=== PATIENT | female | born 1990 | race American Indian/Alaskan Native ===

== ENCOUNTER 2016-08-10 09:42 | Emergency (ER) | payer OTHER ==
[2016-08-10 09:53] VITALS: BMI 21.2
[2016-08-10 09:56] VITALS: O2SAT 99
--- NOTE | 2016-08-10 10:48 | ED PDOC ---
Arrival/HPI <Inocente Dickson Jr. - Last Filed: 08/10/16 11:39> - General Historian: Patient - History of Present Illness Time/Duration: Prior to Arrival Quality: Aching, Cramping <Willy Ríos - Last Filed: 08/12/16 13:11> - General Chief Complaint: Abdominal Pain Time Seen by Provider: 08/10/16 10:31 - History of Present Illness Narrative History of Present Illness (Text): 08/10/16 10:51 26 y/o female with no significant PMH presenting with complaints of lower abdominal pain. Patient localizes the pain to the infra-umbilical area right of midline. She states she woke up with the pain this morning. She denies possibility of . Further dies diarrhea, nausea, vomiting, fever or chills. Pain is worse with laying flat. Appetite is intact. (Willy Ríos) Past Medical History - Provider Review Nursing Documentation Reviewed: Yes - Psychiatric Hx Substance Use: No <Willy Ríos - Last Filed: 08/12/16 13:11> Family/Social History - Physician Review Nursing Documentation Reviewed: Yes Family/Social History: Diabetes Smoking Status: Never Smoked Hx Alcohol Use: No Hx Substance Use: No <Willy Ríos - Last Filed: 08/12/16 13:11> Allergies/Home Meds <Inocente Dickson Jr. - Last Filed: 08/10/16 11:39> <Willy Ríos - Last Filed: 08/12/16 13:11> Allergies/Adverse Reactions: Allergies No Known Allergies Allergy (Verified 08/10/16 09:53) Review of Systems - Physician Review All systems were reviewed & negative as marked: Yes - Review of Systems Constitutional: absent: Fatigue, Weight Change, Fevers Eyes: Normal. absent: Photophobia ENT: Normal Respiratory: absent: SOB, Cough Gastrointestinal: Abdominal Pain. absent: Stool Changes, Constipation, Diarrhea , Nausea, Vomiting, Appetite Changes, Hematochezia Genitourinary Female: absent: Dysuria, Frequency, Hematuria Musculoskeletal: absent: Back Pain, Neck Pain Skin: absent: Rash, Pruritis, Skin Lesions Neurological: absent: Headache, Dizziness, Focal Weakness Psychiatric: absent: Anxiety, Depression <Willy Ríos - Last Filed: 08/12/16 13:11> Physical Exam Vital Signs Reviewed: Yes Temperature: Afebrile Blood Pressure: Normal Pulse: Regular Respiratory Rate: Normal Appearance: Positive for: Uncomfortable Pain Distress: Moderate Mental Status: Positive for: Alert and Oriented X 3 - Systems Exam Head: Present: Atraumatic, Normocephalic Pupils: Present: PERRL Extroacular Muscles: Present: EOMI Conjunctiva: Present: Normal Mouth: Present: Moist Mucous Membranes Respiratory/Chest: Present: Clear to Auscultation, Good Air Exchange. No: Respiratory Distress Cardiovascular: Present: Regular Rate and Rhythm, Normal S1, S2 Abdomen: Present: Tenderness, Normal Bowel Sounds, Rebound. No: Distention Upper Extremity: Present: Normal Inspection. No: Cyanosis, Edema Lower Extremity: Present: Normal Inspection, NORMAL PULSES. No: Edema, CALF TENDERNESS Neurological: Present: GCS=15, CN II-XII Intact, Speech Normal <Willy Ríos - Last Filed: 08/12/16 13:11> Vital Signs Temp Pulse Resp BP Pulse Ox 08/10/16 16:56 84 18 113/64 99 08/10/16 16:38 98.3 F 64 18 121/65 99 08/10/16 15:00 67 18 123/61 99 08/10/16 13:00 71 18 125/64 99 08/10/16 10:59 79 18 128/68 99 08/10/16 09:53 98.5 F 84 15 130/70 99 Medical Decision Making - Lab Interpretations I have reviewed the lab results: Yes <Inocente Dickson Jr. - Last Filed: 08/10/16 11:39> <Willy Ríos - Last Filed: 08/12/16 13:11> ED Course and Treatment: Patient seen and examined with resident. Came up with treatment and disposition plan with resident. The patient is a 26 year old female who comes to the emergency department for evaluation of lower abdominal pain. Additional HPI details as noted by resident. On physical examination. On examination the patient has tenderness to the abdomen with some rebound. Abdomen/Pelvis CT ordered to rule out appendicitis vs. ruptured ovarian cyst. Dilaudid given for pain. IV Fluids given. (Inocente Dickson Jr.) 08/10/16 10:57 26 y/o female presenting with sudden onset lower abdominal pain. Abdomen is tender with some rebound. There is certainly the possibility of appendicitis vs ruptured ovrian cyst vs ectopic . - POC test - CBC - CMP - Coag - type and screen - CT abd/pelvis w/ PO, IV contrast if not - IVF - pain management (Willy Ríos) - Lab Interpretations Lab Results: 08/10/16 11:25 08/10/16 11:25 Lab Results 08/10/16 11:30: Blood Type O POSITIVE, Antibody Screen Negative, BBK History Checked No verified bt 08/10/16 11:25: WBC 6.3, RBC 4.04, Hgb 11.7 L, Hct 34.1 L, MCV 84.4, MCH 29.0, MCHC 34.3, RDW 12.0, Plt Count 229, MPV 9.7, Gran % 67.0, Lymph % (Auto) 26.2, [place] % (Auto) 5.7, Eos % (Auto) 0.9 L, Baso % (Auto) 0.2, Gran # 4.24, Lymph # 1.7, [place] # 0.4, Eos # 0.1, Baso # 0.01, PT 11.1, INR 1.03, APTT 27.5, Sodium 138, Potassium 4.5, Chloride 102, Carbon Dioxide 26, Anion Gap 15, BUN 9, Creatinine 0.7, Est GFR ( Amer) > 60, Est GFR (Non-Af Amer) > 60, Random Glucose 101, Calcium 9.2, Total Bilirubin 0.7, AST 28, ALT 22, Alkaline Phosphatase 83, Total Protein 8.1, Albumin 4.4, Globulin 3.7, Albumin/Globulin Ratio 1.2 08/10/16 11:00: Urine Color Yellow, Urine Appearance Clear, Urine pH 7.0, Ur Specific [place] 1.015, Urine Protein Negative, Urine Glucose (UA) Negative, Urine Ketones Negative, Urine Blood Trace-intact H, Urine Nitrate Negative, Urine Bilirubin Negative, Urine Urobilinogen 0.2, Ur Leukocyte Esterase Trace H , Urine RBC 0 - 2, Urine WBC 0 - 2, Ur Epithelial Cells 0 - 2, Urine Bacteria Trace - RAD Interpretation Radiology Orders: 08/10/16 11:18 ABDOMEN & PELVIS [ABD PELVIS PO & IV CONTRAST] [CT] Stat 08/10/16 14:23 TRANSVAGINAL [US] Stat - Medication Orders Current Medication Orders: Discontinued Medications Hydromorphone HCl (Dilaudid) 0.5 mg IVP STAT STA Stop: 08/10/16 11:00 Last Admin: 08/10/16 11:21 Dose: 0.5 MG IVP Administration Document 08/10/16 11:21 AICHA (Rec: 08/10/16 11:21 AICHA [id number]) Charges for Administration # of IVP Administrations 1 Sodium Chloride (Sodium Chloride 0.9%) 1,000 mls @ 999 mls/hr IV .Q1H1M STA Stop: 08/10/16 11:59 Last Admin: 08/10/16 11:21 Dose: 999 MLS/HR eMAR Start Stop Document 08/10/16 11:21 AICHA (Rec: 08/10/16 11:22 AICHA [id number]) Intravenous Solution Start Date 08/10/16 Start Time 11:21 End Date 08/10/16 End time 12:21 Total Infusion Time 60 Iohexol (Omnipaque 240 (50 Ml)) Confirm Administered Dose 50 ml .ROUTE .STK-MED ONE Stop: 08/10/16 11:27 Iohexol (Omnipaque 350 100 Ml) Confirm Administered Dose 350 mg .ROUTE .STK-MED ONE Stop: 08/10/16 13:12 - Scribe Statement The provider has reviewed the documentation as recorded by the Scribe <Inocente Dickson Jr. - Last Filed: 08/10/16 11:39> <Willy Ríos - Last Filed: 08/12/16 13:11> - Scribe Statement William De La Rosa Provider Scribe Attestation: All medical record entries made by the Scribe were at my direction and personally dictated by me. I have reviewed the chart and agree that the record accurately reflects my personal performance of the history, physical exam, medical decision making, and the department course for this patient. I have also personally directed, reviewed, and agree with the discharge instructions and disposition. (Inocente Dickson Jr.) Disposition/Present on Arrival <Inocente Dickson Jr. - Last Filed: 08/10/16 11:39> - Present on Arrival Any Indicators Present on Arrival: No History of DVT/PE: No History of Uncontrolled Diabetes: No Urinary Catheter: No History of Decub. Ulcer: No History Surgical Site Infection Following: None - Disposition Have Diagnosis and Disposition been Completed?: Yes Disposition Time: 14:00 <Willy Ríos - Last Filed: 08/12/16 13:11> - Disposition Diagnosis: Dermoid cyst of ovary Disposition: HOME/ ROUTINE Condition: GOOD Discharge Instructions (ExitCare): Ovarian Cyst (ED) Additional Instructions: A referral for a cycle repairer is attached to this document. Please see this physician within the next week. You are prescribed Motrin for pain. Please take 400mg every 6 hours as needed for pain. If symptoms worsen please return to the ED. Prescriptions: Ibuprofen [Motrin] 400 mg PO Q6H PRN #30 tab PRN Reason: abdominal pain Referrals: Elsie Mckay MD [Primary Care Provider] - Follow up with primary Vernell Peña MD [Staff Provider] - Follow up with primary
[2016-08-10 10:59] VITALS: RESP 18
[2016-08-10] MEDS ORDERED: Sodium Chloride 0.9% 1,000 ML IV STA (10:59)
[2016-08-10] MEDS ORDERED: HYDROmorphone 0.5 mg/0.5 ml ISec IVP STA (10:59)
[2016-08-10 11:25] LABS: URINE BILIRUBIN NEGATIVE (NEGATIVE); URINE BLOOD TRACE-INTACT (NEGATIVE); URINE GLUCOSE (UA) NEGATIVE (NEGATIVE); URINE KETONE NEGATIVE (NEGATIVE); URINE LEUKOCYTE ESTERASE TRACE Leu/uL (NEGATIVE); URINE PROTEIN NEGATIVE mg/dL (<30 mg/dL); URINE UROBILINOGEN 0.2 E.U./dL (<1 E.U./dL)
[2016-08-10] MEDS ORDERED: Iohexol 240 (50 ml) ONE (11:26)
[2016-08-10 11:36] LABS: ADD MANUAL DIFF? NO
[2016-08-10 11:43] LABS: URINE APPEARANCE CLEAR (CLEAR); URINE COLOR YELLOW (YELLOW)
[2016-08-10 11:46] LABS: BASO # 0.01 K/mm3 (0.0-2.0); BASO % 0.2 % (0.0-3.0); EOS # 0.1 (0.0-0.7); EOS % 0.9 % (1.5-5.0); GRAN # 4.24 (1.4-6.5); HEMATOCRIT 34.1 % (36.0-48.0); LYMPH # 1.7 (1.2-3.4); LYMPH % 26.2 % (22.0-35.0); MEAN CELL VOLUME 84.4 fL (80.0-105.0); MEAN CORPUSCULAR HGB CONC 34.3 g/dl (31.0-37.0); MEAN PLATELET VOLUME 9.7 fl (7.0-11.0); MONO # 0.4 (0.1-0.6); MONO % 5.7 % (1.0-6.0); PLATELET COUNT 229 10^3/uL (120.0-450.0); WHITE BLOOD COUNT 6.3 10^3/ul (4.5-11.0)
[2016-08-10 11:46] LABS: URINE BACTERIA TRACE (NEG); URINE EPITHELIAL CELLS 0 - 2 /hpf (0-5); URINE RBC 0 - 2 /hpf (0-2); URINE WBC 0 - 2 /hpf (0-6)
[2016-08-10 11:56] LABS: INR 1.03 (0.93-1.08); PARTIAL THROMBOPLASTIN TIME 27.5 Seconds (23.7-30.8)
[2016-08-10 12:02] LABS: ALB/GLOB RATIO 1.2 (1.1-1.8); ALKALINE PHOSPHATASE 83 U/L (38-133); ALT/SGPT 22 U/L (7-56); AST/SGOT 28 U/L (15-39); BILIRUBIN,TOTAL 0.7 mg/dL (0.2-1.3); BLOOD UREA NITROGEN 9 mg/dL (7-21); CALCIUM 9.2 mg/dL (8.4-10.5); CARBON DIOXIDE 26 mmol/L (21-33); CHLORIDE 102 mmol/L (98-107); GFR AFRICAN-AMERICAN > 60; GLUCOSE,RANDOM 101 mg/dL (70-110); POTASSIUM 4.5 mmol/L (3.6-5.0); SODIUM 138 mmol/L (132-148); TOTAL PROTEIN 8.1 g/dL (5.8-8.3)
[2016-08-10] MEDS ORDERED: Iohexol 350 MG/100 ML VIAL ONE (13:11)
--- NOTE | 2016-08-10 13:56 | CT ---
PROCEDURE: CT Abdomen and Pelvis with contrast HISTORY: abdominal pain r/o appendicitis COMPARISON: None. TECHNIQUE: Contrast dose: 100 cc of Omni 350 Radiation dose: Total exam DLP = 256 mGy-cm. FINDINGS: LOWER THORAX: Unremarkable. LIVER: Unremarkable. No gross lesion or ductal dilatation. GALLBLADDER AND BILE DUCTS: Unremarkable. PANCREAS: Unremarkable. No gross lesion or ductal dilatation. SPLEEN: Unremarkable. ADRENALS: Unremarkable. No mass. KIDNEYS AND URETERS: Unremarkable. No hydronephrosis. No solid mass. VASCULATURE: Unremarkable. No aortic aneurysm. BOWEL: Unremarkable. No obstruction. No gross mural thickening. APPENDIX: Normal appendix. PERITONEUM: Unremarkable. No free fluid. No free air. LYMPH NODES: Unremarkable. No enlarged lymph nodes. BLADDER: Unremarkable. REPRODUCTIVE: There is a fat density mass in the left adnexal region consistent with a dermoid. This measures 4.4 cm in diameter and 5.1 cm in height. There is a small amount of fluid in the cul-de-sac. The uterus is retroflexed BONES: No acute fracture. OTHER FINDINGS: None. IMPRESSION: Left adnexal dermoid. No acute intra-abdominal findings. No evidence of appendicitis
--- NOTE | 2016-08-10 15:20 | US ---
HISTORY: dermoid cyst found on CT abd COMPARISON: None available. TECHNIQUE: Transvaginal scanning was per FINDINGS: UTERUS: Measures uterus retroverted and measures 8.1 x 4.1 x 5.0 cm. Normal size No fibroid or other mass lesion seen. ENDOMETRIUM: Measures 9 mm in diameter. Unremarkable. CERVIX: No cervical abnormality identified. RIGHT OVARY: Measures 4.4 x 4.5 x 2.5 cm. No solid mass. Normal flow. LEFT OVARY: Measures 4.3 x 2.6 x 3.0 cm. A complex partly cystic left adnexal mass with a CT appearance of fat, intermediate soft tissue and faint calcification suggesting a left ovarian dermoid - this mass measures 5.3 x 4.6 x 5.6 cm on this ultrasound FREE FLUID: No significant free fluid noted. OTHER FINDINGS: None. IMPRESSION: Left adnexal findings consistent with a left ovarian dermoid
[2016-08-10 16:39] VITALS: TEMP 98.3
[2016-08-10 16:57] VITALS: BP 113/64; PULSE 84
== END 2016-08-10 16:57 | disposition home or self-care (01) ==
LOC: ED 09:42
DX: D27.1 Benign neoplasm of left ovary (principal)
CPT/HCPCS: 74177; 76830; 80053; 81001; 85025; 85610; 85730; 86850; 86900; 96361; 96374; 99284; J1170; J7040; Q9966; Q9967

== ENCOUNTER 2016-12-26 22:21 | Observation (INO) | payer OTHER ==
--- NOTE | 2016-12-27 00:05 | ED PDOC ---
Arrival/HPI - General Chief Complaint: Abdominal Pain Time Seen by Provider: 12/26/16 22:52 Historian: Patient - History of Present Illness Narrative History of Present Illness (Text): 12/27/16 00:02 Nate Alvarenga is a 26 year old, 3 month female ( P:1 A:2) presents to the emergency department complaining of abdominal cramps. Denies any vaginal bleeding or discharge. Patient states she has care and had her first US a week ago which was normal. Denies any fever, chills, headache, dizziness, nausea, vomiting, or any other complaints at this time. Time/Duration: Other (yesterday ) Symptom Onset: Gradual Severity Level: Mild Activities at Onset: Light Past Medical History - Provider Review Nursing Documentation Reviewed: Yes - Psychiatric Hx Substance Use: No Family/Social History - Physician Review Nursing Documentation Reviewed: Yes Family/Social History: No Known Family HX Smoking Status: Never Smoked Hx Alcohol Use: No Hx Substance Use: No Allergies/Home Meds Allergies/Adverse Reactions: Allergies No Known Allergies Allergy (Verified 12/26/16 23:50) Home Medications: Home Meds Medication Instructions Recorded Confirmed Pre Natalvitamins 1 tab PO DAILY 12/26/16 12/26/16 Review of Systems - Physician Review All systems were reviewed & negative as marked: Yes - Review of Systems Constitutional: Normal. absent: Fatigue, Fevers Respiratory: Normal. absent: SOB, Cough, Sputum Cardiovascular: Normal. absent: Chest Pain, Palpitations Gastrointestinal: Abdominal Pain (Abdominal cramps ). absent: Diarrhea, Nausea , Vomiting Genitourinary Female: Normal. absent: Dysuria, Frequency, Vaginal Bleeding, Vaginal Discharge Neurological: Normal. absent: Headache, Dizziness Psychiatric: Normal Physical Exam Vital Signs Reviewed: Yes Vital Signs Temp Pulse Resp BP Pulse Ox 12/26/16 23:52 98.6 F 93 H 18 124/81 100 Temperature: Afebrile Blood Pressure: Normal Pulse: Regular Respiratory Rate: Normal Appearance: Positive for: Well-Appearing, Non-Toxic, Comfortable Pain Distress: None Mental Status: Positive for: Alert and Oriented X 3 - Systems Exam Head: Present: Atraumatic, Normocephalic Pupils: Present: PERRL Conjunctiva: Present: Normal Mouth: Present: Moist Mucous Membranes Respiratory/Chest: Present: Clear to Auscultation, Good Air Exchange. No: Respiratory Distress, Accessory Muscle Use Cardiovascular: Present: Regular Rate and Rhythm, Normal S1, S2. No: Murmurs Abdomen: Present: Tenderness (left lower abdomen), Normal Bowel Sounds. No: Distention, Peritoneal Signs, Rebound, Guarding Back: Present: CVA Tenderness (left) Upper Extremity: Present: Normal Inspection. No: Cyanosis, Edema Lower Extremity: Present: Normal Inspection. No: Edema Neurological: Present: GCS=15, CN II-XII Intact, Speech Normal, Motor Func Grossly Intact, Normal Sensory Function Skin: Present: Warm, Dry, Normal Color. No: Rashes Psychiatric: Present: Alert, Oriented x 3, Normal Insight, Normal Concentration Medical Decision Making ED Course and Treatment: 12/27/16 00:07 Impression: A 26 year old, 3 month female who presents to the emergency department complaining of abdominal cramps. Denies vaginal bleeding or discharge. Plan: -- Labs -- Beta-HCG -- Urinalysis -- Age US -- Reassess and disposition Progress Notes: 12/27/16 01:42 US reviewed: IMPRESSION: 1. Single live intrauterine gestation. 2. Probable complex LEFT ovarian cyst. Suggest followup to ensure resolution. 3. Simple LEFT ovarian cyst. 12/27/16 03:55 Case discussed with who is aware and agrees with the plan to observe patient at [facility] for pyelo. Accepts patient under hospitalist service. - Lab Interpretations Lab Results: 12/27/16 00:40 12/27/16 00:41 Lab Results 12/27/16 00:41: Blood Type O POSITIVE, Antibody Screen Negative, BBK History Checked Patient has bt 12/27/16 00:41: Beta HCG, Quant [id number] H 12/27/16 00:41: Sodium 136, Potassium 4.4, Chloride 100, Carbon Dioxide 24, Anion Gap 16, BUN 8, Creatinine 0.6, Est GFR ( Amer) > 60, Est GFR (Non- Af Amer) > 60, Random Glucose 99, Calcium 9.3, Total Bilirubin 0.4, AST 24, ALT 29, Alkaline Phosphatase 69, Total Protein 7.2, Albumin 4.0, Globulin 3.1, Albumin/Globulin Ratio 1.3, Lipase 39 12/27/16 00:40: WBC 14.7 H D, RBC 3.26 L, Hgb 9.3 L, Hct 27.2 L, MCV 83.4, MCH 28.5, MCHC 34.2, RDW 12.4, Plt Count 203, MPV 9.4 12/27/16 00:33: Urine Color Yellow, Urine Appearance Sl cloudy, Urine pH 6.0, Ur Specific [place] 1.020, Urine Protein 30 H, Urine Glucose (UA) Negative, Urine Ketones Negative, Urine Blood Moderate H, Urine Nitrate Negative, Urine Bilirubin Negative, Urine Urobilinogen 1.0 H, Ur Leukocyte Esterase Moderate H, Urine RBC 2 - 5, Urine WBC 20 - 25, Ur Epithelial Cells 3 - 4, Urine Bacteria Trace, Urine HCG, Qual Positive I have reviewed the lab results: Yes - RAD Interpretation Narrative RAD Interpretations (Text): EXAM: US After First Trimester, Transabdominal Dictated and Authenticated by: Tyree Barkley MD FINDINGS: Fetus: Single live intrauterine gestation. Heart rate: heart rate of 170 beats per minute. Presentation: Variable. Placenta: Anterior placenta. No placenta previa or abruption. Amniotic fluid: Normal. Anatomy: No gross anomaly is appreciated. BIOMETRICS Gestational age by US: Estimated gestational age of 13 weeks 4 days by measurements. EFW: Estimated weight of 78 g. BPD: 2.1 cm, correlating with 13 weeks 3 days. HC: 8.6 cm, correlating with 13 weeks 6 days. AC: 7.3 cm, correlating with 13 weeks 6 days. FL: 1.1 cm, correlating with 13 weeks 2 days. MATERNAL: Uterus: Unremarkable. No myometrial mass. Cervix: No cervical dilatation or effacement. Adnexa: RIGHT ovary: Not visualized. LEFT ovary: 5.2 x 4.4 x 4.2 hypoechoic lesion with internal echoes. LEFT ovary: 1.9 x 1.9 x 1.7 cm anechoic lesion. No adnexal masses. Free fluid: No significant free fluid. IMPRESSION: 1. Single live intrauterine gestation. 2. Probable complex LEFT ovarian cyst. Suggest followup to ensure resolution. 3. Simple LEFT ovarian cyst. 4. Incidental/non-acute findings are described above. Radiology Orders: 12/27/16 00:03 AGE [US] Stat Sonography Technician: Radiologist - Medication Orders Current Medication Orders: Discontinued Medications Ceftriaxone Sodium (Rocephin 1 Gram Ivpb) 1 gm in 100 mls @ 200 mls/hr IV ONCE STA PRN Reason: Protocol Stop: 12/27/16 03:18 Last Admin: 12/27/16 03:33 Dose: 200 mls/hr - Scribe Statement The provider has reviewed the documentation as recorded by the Kane Monreal Provider Attestation: All medical record entries made by the Marceibdavid were at my direction and personally dictated by me. I have reviewed the chart and agree that the record accurately reflects my personal performance of the history, physical exam, medical decision making, and the department course for this patient. I have also personally directed, reviewed, and agree with the discharge instructions and disposition. Disposition/Present on Arrival - Present on Arrival Any Indicators Present on Arrival: No History of DVT/PE: No History of Uncontrolled Diabetes: No Urinary Catheter: No History of Decub. Ulcer: No History Surgical Site Infection Following: None - Disposition Have Diagnosis and Disposition been Completed?: Yes Diagnosis: Pyelonephritis affecting Disposition: HOSPITALIZED Disposition Time: 03:54 Patient Problems: Current Active Problems Problem Status Onset Pyelonephritis affecting Acute Condition: STABLE Referrals: PCP,NO [Primary Care Provider] - Follow up with primary Forms: Utility Funding ([place])
[2016-12-27 00:53] LABS: URINE BILIRUBIN NEGATIVE (NEGATIVE); URINE BLOOD MODERATE (NEGATIVE); URINE GLUCOSE (UA) NEGATIVE (NEGATIVE); URINE LEUKOCYTE ESTERASE MODERATE Leu/uL (NEGATIVE); URINE NITRATE NEGATIVE (NEGATIVE); URINE PROTEIN 30 mg/dL (<30 mg/dL)
[2016-12-27 00:56] LABS: HCG,QUALITATIVE URINE POSITIVE (NEGATIVE)
[2016-12-27 00:56] LABS: HEMOGLOBIN 9.3 g/dL (12.0-16.0); MEAN CELL VOLUME 83.4 fl (80.0-105.0); MEAN CORPUSCULAR HEMOGLOBIN 28.5 pg (25.0-35.0); MEAN CORPUSCULAR HGB CONC 34.2 g/dl (31.0-37.0); MEAN PLATELET VOLUME 9.4 fl (7.0-11.0); RBC 3.26 10^6/uL (3.5-6.1); RED CELL DISTRIBUTION WIDTH 12.4 % (11.5-14.5); WHITE BLOOD COUNT 14.7 10^3/ul (4.5-11.0)
[2016-12-27 00:58] LABS: URINE APPEARANCE SL CLOUDY (CLEAR); URINE COLOR YELLOW (YELLOW)
[2016-12-27 01:06] LABS: ALB/GLOB RATIO 1.3 (1.1-1.8); ALT/SGPT 29 U/L (7-56); AST/SGOT 24 U/L (15-39); BLOOD UREA NITROGEN 8 mg/dL (7-21); CALCIUM 9.3 mg/dL (8.4-10.5); GFR AFRICAN-AMERICAN > 60; GFR NON-AFRICAN AMERICAN > 60; LIPASE 39 U/L (23-300)
[2016-12-27 01:13] LABS: URINE WBC 20 - 25 /hpf (0-6)
[2016-12-27 01:14] LABS: URINE BACTERIA TRACE (NEG)
--- NOTE | 2016-12-27 01:23 | US ---
EXAM: US After First Trimester, Transabdominal CLINICAL HISTORY: 26 years old, female; Pain; Other: Lt sided pain; Gestational age or lmp: 09/24/16; TECHNIQUE: Real-time transabdominal obstetrical ultrasound of the maternal pelvis and a second or third trimester with image documentation. COMPARISON: No relevant prior studies available. FINDINGS: Fetus: Single live intrauterine gestation. Heart rate: heart rate of 170 beats per minute. Presentation: Variable. Placenta: Anterior placenta. No placenta previa or abruption. Amniotic fluid: Normal. Anatomy: No gross anomaly is appreciated. BIOMETRICS Gestational age by US: Estimated gestational age of 13 weeks 4 days by measurements. EFW: Estimated weight of 78 g. BPD: 2.1 cm, correlating with 13 weeks 3 days. HC: 8.6 cm, correlating with 13 weeks 6 days. AC: 7.3 cm, correlating with 13 weeks 6 days. FL: 1.1 cm, correlating with 13 weeks 2 days. MATERNAL: Uterus: Unremarkable. No myometrial mass. Cervix: No cervical dilatation or effacement. Adnexa: RIGHT ovary: Not visualized. LEFT ovary: 5.2 x 4.4 x 4.2 hypoechoic lesion with internal echoes. LEFT ovary: 1.9 x 1.9 x 1.7 cm anechoic lesion. No adnexal masses. Free fluid: No significant free fluid. IMPRESSION: 1. Single live intrauterine gestation. 2. Probable complex LEFT ovarian cyst. Suggest followup to ensure resolution. 3. Simple LEFT ovarian cyst. 4. Incidental/non-acute findings are described above.
[2016-12-27] MEDS ORDERED: cefTRIAXone 1 gm 1 GM/100 ML BAG IV STA (02:49)
--- NOTE | 2016-12-27 05:38 | CP.PCM.HP ---
<Santiago Khanna - Last Filed: 12/27/16 06:04> History of Present Illness - History of Present Illness History of Present Illness: CC: Left lower quadrant pain HPI: Patient is a 26 year old female currently in first trimester ( A2) with PMH significant for history of bladder infection who presents with abdominal cramping and left sided abdominal pain for the past 12 hours. She reports her left lower abdominal pain is dull in nature without radiation. She reports the pain is constant and has not taken anything for pain control. She denies hematuria, fever, dysuria, or cloudy urine. She denies vaginal discharge and bleeding at time of interview. She currently receives care from [facility], there she reports a normal first trimester US. She denies fever , chills, chest pain, shortness of breath, nausea, vomiting or difficulty with urination. PMH: Bladder infections PSH: none FMH: Diabetes Allergies: NKDA Meds: vitamin Sochx: Denies tobacco, ETOH, ID/IVDA PMD: [facility] Present on Admission - Present on Admission Any Indicators Present on Admission: No History of DVT/PE: No History of Uncontrolled Diabetes: No Urinary Catheter: No Decubitus Ulcer Present: No Review of Systems - Constitutional Constitutional: As Per HPI - EENT Eyes: As Per HPI - Cardiovascular Cardiovascular: As Per HPI - Gastrointestinal Gastrointestinal: Abdominal Pain (Left sided), Cramping. absent: Bloating, Nausea, Vomiting - Genitourinary Genitourinary: Flank Pain (minimal left sided). absent: Change in Urinary Stream, Difficulty Urinating, Dysuria, Pyuria, Urinary Incontinence, Urinary Urgency - Reproductive: Female Reproductive:Female: As Per HPI - Menstruation Menstruation: As Per HPI - Musculoskeletal Musculoskeletal: absent: Back Pain, Muscle Weakness, Numbness - Integumentary Integumentary: As Per HPI - Neurological Neurological: absent: Dizziness, Numbness, Focal Weakness, Weakness - Psychiatric Psychiatric: absent: Anxiety, Depression - Endocrine Endocrine: absent: Excessive Sweating, Fatigue, Palpitations Past Patient History - Past Social History Smoking Status: Never Smoked - PSYCHIATRIC Hx Substance Use: No - SURGICAL HISTORY Hx Surgeries: No Meds Allergies/Adverse Reactions: Allergies Allergy/AdvReac Type Severity Reaction Status Date / Time No Known Allergies Allergy Verified 12/26/16 23:50 Physical Exam - Head Exam Head Exam: ATRAUMATIC, NORMAL INSPECTION, NORMOCEPHALIC - Eye Exam Eye Exam: EOMI, PERRL - ENT Exam ENT Exam: Mucous Membranes Moist, Normal Exam - Neck Exam Neck exam: Positive for: Normal Inspection - Respiratory Exam Respiratory Exam: Clear to Auscultation Bilateral, NORMAL BREATHING PATTERN - Cardiovascular Exam Cardiovascular Exam: REGULAR RHYTHM, +S1, +S2 - GI/Abdominal Exam GI & Abdominal Exam: Normal Bowel Sounds, Soft, Tenderness (left lower quadrant TTP). absent: Firm, Guarding, Rigid - Extremities Exam Extremities exam: Positive for: full ROM, normal inspection, pedal pulses present - Back Exam Back exam: FULL ROM, tenderness (left sided T12 to L3 ). absent: CVA tenderness (L), CVA tenderness (R) - Neurological Exam Neurological exam: Alert, CN II-XII Intact, Normal Gait, Oriented x3, Reflexes Normal - Psychiatric Exam Psychiatric exam: Normal Affect, Normal Mood - Skin Skin Exam: Dry, Intact, Normal Color, Warm Results - Vital Signs Recent Vital Signs: Last Vital Signs Temp 98.9 F 12/27/16 04:35 Pulse 99 H 12/27/16 04:35 Resp 18 12/27/16 05:06 BP 118/60 12/27/16 04:35 Pulse Ox 99 12/27/16 05:06 - Labs Result Diagrams: 12/27/16 00:40 12/27/16 00:41 Assessment & Plan - Assessment and Plan (Free Text) Assessment: Patient is a 26 year old female in her first trimester who presents to the ED with left lower abdominal pain and cramping. UA in the ED shows positive leukocyte esterase and CBC shows elevated WBC. She is being admitted for possible pyelonephritis in the setting of first TM . Plan: 1. LLQ Abdominal Pain - Likely secondary to UTI vs. Pylonephritis vs. ovarian cyst - UA showing positive leuk esteratse, protein - 1 gram Rocephin given in ED - U/S showing single live intrauterine gestation, complex left ovarian cyst - IVF NS @ 100mL/Hr 2. UTI - UA showing positive leuk esteratse, elevated protein - WBC elevated 14.7 - Afebrile - 1 gm rocephin given in ED, continue ceftriaxone - Follow up with repeat CBC in AM - Urine culture - ID Consulted appreciate recs 3. First TM intrauterine - Beta HCG, Quant [id number] - U/S showing single live intrauterine gestation - MV, Folic acid 4. GI/DVT ppx - Pepcid - SCDs - Date & Time Date: 12/27/16 Time: 06:13 <Nery Shabazz - Last Filed: 12/27/16 06:45> Results - Vital Signs Recent Vital Signs: Last Vital Signs Temp 98.9 F 12/27/16 04:35 Pulse 99 H 12/27/16 04:35 Resp 18 12/27/16 05:06 BP 118/60 12/27/16 04:35 Pulse Ox 99 12/27/16 05:06 - Labs Result Diagrams: 12/27/16 00:40 12/27/16 00:41 Attending/Attestation - Attestation I have personally seen and examined this patient.: Yes I have fully participated in the care of the patient.: Yes I have reviewed all pertinent clinical information: Yes Notes (Text): 12/27/16 06:44 Patient was seen when she was in the ER. Agree with history, physical examination, assessment and plan.
[2016-12-27] MEDS ORDERED: Sodium Chloride 0.9% 1,000 ML IV SCH (05:45)
[2016-12-27 06:51] VITALS: BMI 22.1
[2016-12-27 08:50] LABS: BASO # 0.01 K/mm3 (0.0-2.0); BASO % 0.1 % (0.0-3.0); EOS % 0.2 % (1.5-5.0); GRAN # 12.04 (1.4-6.5); GRAN % 87.4 % (50.0-68.0); HEMOGLOBIN 8.5 g/dL (12.0-16.0); MEAN CELL VOLUME 82.9 fl (80.0-105.0); MEAN PLATELET VOLUME 8.9 fl (7.0-11.0); MONO # 0.7 (0.1-0.6); MONO % 5.3 % (1.0-6.0); PLATELET COUNT 175 10^3/uL (120.0-450.0); RBC 2.93 10^6/uL (3.5-6.1); RED CELL DISTRIBUTION WIDTH 12.3 % (11.5-14.5); WHITE BLOOD COUNT 13.8 10^3/ul (4.5-11.0)
[2016-12-27] MEDS: Multivitamin Therapeutic Tab PO SCH (09:52)
[2016-12-27] MEDS: cefTRIAXone 1 gm 1 GM/100 ML BAG IVPB SCH (10:41)
--- NOTE | 2016-12-27 11:25 | CP.PCM.CON ---
History of Present Illness - History of Present Illness History of Present Illness: 26 year old female with PMH of UTI in the past, current with AOG 12 weeks came in to [facility] complaining of left lower quadrant pain which started only yesterday. She denies nausea or vomiting, no diarrhea, no dysuria currently, no fever or chills, no headache or dizziness, no chest pain, no SOB, no cough or colds. In the ED, she was noted to have leukocytosis. Urinalysis shows some pyuria. Ultrasound was done which showed left ovarian cyst. Infectious Diseases consult is requested to further evaluate and manage. Review of Systems - Review of Systems All systems: reviewed and no additional remarkable complaints except (as per HPI ) Past Patient History - Past Social History Smoking Status: Never Smoked - GENITOURINARY/GYNECOLOGICAL Other/Comment: [id number] - PSYCHIATRIC Hx Substance Use: No - SURGICAL HISTORY Other/Comment: TOPX2 Meds Allergies/Adverse Reactions: Allergies Allergy/AdvReac Type Severity Reaction Status Date / Time No Known Allergies Allergy Verified 12/26/16 23:50 - Medications Medications: Current Medications Acetaminophen (Tylenol 325mg Tab) 650 mg PO Q6H PRN PRN Reason: Fever >100.4 F Famotidine (Pepcid) 40 mg PO HS [facility]ARA Folic Acid (Folic Acid) 1 mg PO DAILY [facility]ARA Sodium Chloride (Sodium Chloride 0.9%) 1,000 mls @ 100 mls/hr IV .Q10H SAMARA Ceftriaxone Sodium (Rocephin 1 Gram Ivpb) 1 gm in 100 mls @ 100 mls/hr IVPB DAILY [facility]ARA PRN Reason: Protocol Multivitamins (Thera Tab) 1 tab PO 0800 [facility] Physical Exam - Constitutional Appears: Non-toxic, No Acute Distress - Head Exam Head Exam: NORMAL INSPECTION - ENT Exam ENT Exam: Mucous Membranes Moist - Neck Exam Neck exam: Negative for: Lymphadenopathy, Meningismus - Respiratory Exam Respiratory Exam: Clear to Auscultation Bilateral - Cardiovascular Exam Cardiovascular Exam: +S1, +S2 - GI/Abdominal Exam GI & Abdominal Exam: Soft. absent: Tenderness Results - Vital Signs Recent Vital Signs: Last Vital Signs Temp 98.9 F 12/27/16 04:35 Pulse 99 H 12/27/16 04:35 Resp 18 12/27/16 05:06 BP 118/60 12/27/16 04:35 Pulse Ox 99 12/27/16 05:06 - Labs Result Diagrams: 12/27/16 08:30 12/27/16 00:41 Assessment & Plan - Assessment and Plan (Free Text) Plan: Assessment Systemic Inflammatory Response Syndrome, consider stress reaction from pain from left ovarian cyst R/O UTI UTI in the past current with AOG 12 weeks Plan Patient has been started on Rocephin; follow up blood and urine cx; reviewed Ultrasound which showed left ovarian cyst will monitor clinically
[2016-12-28 07:41] LABS: BASO # 0.01 K/mm3 (0.0-2.0); BASO % 0.1 % (0.0-3.0); EOS # 0.2 (0.0-0.7); EOS % 1.9 % (1.5-5.0); GRAN # 5.74 (1.4-6.5); LYMPH # 1.5 (1.2-3.4); MEAN CELL VOLUME 83.8 fl (80.0-105.0); MEAN CORPUSCULAR HEMOGLOBIN 28.5 pg (25.0-35.0); MEAN CORPUSCULAR HGB CONC 34.1 g/dl (31.0-37.0); MEAN PLATELET VOLUME 9.2 fl (7.0-11.0); MONO # 0.6 (0.1-0.6); PLATELET COUNT 173 10^3/uL (120.0-450.0); RBC 2.77 10^6/uL (3.5-6.1); RED CELL DISTRIBUTION WIDTH 12.3 % (11.5-14.5)
[2016-12-28 07:58] LABS: ALB/GLOB RATIO 1.1 (1.1-1.8); ALBUMIN 3.1 g/dL (3.0-4.8); ALT/SGPT 23 U/L (7-56); AST/SGOT 19 U/L (15-39); BLOOD UREA NITROGEN 5 mg/dL (7-21); GFR AFRICAN-AMERICAN > 60; GFR NON-AFRICAN AMERICAN > 60
[2016-12-28 08:53] LABS: HEMOGLOBIN 7.9 g/dL (12.0-16.0)
[2016-12-28] MEDS: cefTRIAXone 1 gm 1 GM/100 ML BAG IVPB SCH (10:24)
[2016-12-28] MEDS: Multivitamin Therapeutic Tab PO SCH (10:24)
--- NOTE | 2016-12-28 15:33 | CP.PCM.PN ---
<Amrita Waters - Last Filed: 12/28/16 15:41> Subjective - Date & Time of Evaluation Date of Evaluation: 12/28/16 Time of Evaluation: 15:31 - Subjective Subjective: Progress note for Dr. Rose Pt S&E at bedside. FABI. Pt reports almost complete resolution of LLQ and back pain, no dysuria or hematuria. Pt strained her urine last night, and passed mucus, no kidney stones. She denies fever, chills, N/V/D. Objective - Vital Signs/Intake and Output Vital Signs (last 24 hours): Temp Pulse Resp BP Pulse Ox 98.2 F 80 18 93/48 L 99 12/28/16 06:00 12/28/16 06:00 12/28/16 06:00 12/28/16 06:00 12/28/16 06:00 Intake and Output: 12/28/16 12/28/16 06:59 18:59 Intake Total 620 Balance 620 - Medications Medications: Current Medications Acetaminophen (Tylenol 325mg Tab) 650 mg PO Q6H PRN PRN Reason: Fever >100.4 F Amoxicillin (Amoxil 500 Mg Cap) 500 mg PO Q8 SAMARA PRN Reason: Protocol Last Admin: 12/28/16 15:01 Dose: 500 mg Famotidine (Pepcid) 40 mg PO HS [facility] Last Admin: 12/27/16 22:15 Dose: 40 mg Folic Acid (Folic Acid) 1 mg PO DAILY [facility] Last Admin: 12/28/16 10:23 Dose: 1 mg Ceftriaxone Sodium (Rocephin 1 Gram Ivpb) 1 gm in 100 mls @ 100 mls/hr IVPB DAILY [facility]ARA PRN Reason: Protocol Last Admin: 12/28/16 10:24 Dose: 100 mls/hr Multivitamins (Thera Tab) 1 tab PO 0800 [facility] Last Admin: 12/28/16 10:24 Dose: 1 tab - Labs Labs: 12/28/16 07:00 12/28/16 07:00 - Constitutional Appears: Non-toxic, No Acute Distress - Head Exam Head Exam: NORMAL INSPECTION - Eye Exam Eye Exam: EOMI, Normal appearance - ENT Exam ENT Exam: Mucous Membranes Moist - Neck Exam Neck Exam: Full ROM. absent: Tenderness - Respiratory Exam Respiratory Exam: Clear to Ausculation Bilateral, NORMAL BREATHING PATTERN. absent: Accessory Muscle Use, Respiratory Distress - Cardiovascular Exam Cardiovascular Exam: REGULAR RHYTHM - GI/Abdominal Exam GI & Abdominal Exam: Soft. absent: Distended, Firm, Guarding, Tenderness - Extremities Exam Extremities Exam: Full ROM, Normal Inspection. absent: Tenderness - Neurological Exam Neurological Exam: Alert, Awake, Normal Gait - Psychiatric Exam Psychiatric exam: Flat Affect, Normal Affect, Normal Mood - Skin Skin Exam: Dry, Intact, Normal Color, Warm Assessment and Plan - Assessment and Plan (Free Text) Assessment: 26F in her first trimester who presents to the ED with left lower abdominal pain and cramping. UA in the ED shows positive leukocyte esterase and CBC shows elevated WBC. She is being admitted for possible pyelonephritis in the setting of first TM . Plan: 1. UTI - continue antibiotics (Ceftriaxone IVPB, Amoxicillin PO per Dr. Jeffers recommendations) - f/u urine cx 2. LLQ abdominal pain - US showed SLIUP & complex L ovarian cyst - continue monitoring - Tylenol PO PRN for pain 3. - continue vitamins & folic acid - continue monitoring 4. Anemia - Hgb 7.9 (c/w IV fluids, no dysuria, GIB) - continue folic acid & multivitamin Amrita Waters, DO PGY1 <Kalia Rose - Last Filed: 12/28/16 16:03> Objective - Vital Signs/Intake and Output Vital Signs (last 24 hours): Temp Pulse Resp BP Pulse Ox 98.2 F 80 18 93/48 L 99 12/28/16 06:00 12/28/16 06:00 12/28/16 06:00 12/28/16 06:00 12/28/16 06:00 Intake and Output: 12/28/16 12/28/16 06:59 18:59 Intake Total 620 Balance 620 - Medications Medications: Current Medications Acetaminophen (Tylenol 325mg Tab) 650 mg PO Q6H PRN PRN Reason: Fever >100.4 F Amoxicillin (Amoxil 500 Mg Cap) 500 mg PO Q8 [facility]ARA PRN Reason: Protocol Last Admin: 12/28/16 15:01 Dose: 500 mg Famotidine (Pepcid) 40 mg PO HS [facility] Last Admin: 12/27/16 22:15 Dose: 40 mg Folic Acid (Folic Acid) 1 mg PO DAILY [facility] Last Admin: 12/28/16 10:23 Dose: 1 mg Ceftriaxone Sodium (Rocephin 1 Gram Ivpb) 1 gm in 100 mls @ 100 mls/hr IVPB DAILY [facility] PRN Reason: Protocol Last Admin: 12/28/16 10:24 Dose: 100 mls/hr Multivitamins (Thera Tab) 1 tab PO 0800 [facility] Last Admin: 12/28/16 10:24 Dose: 1 tab - Labs Labs: 12/28/16 07:00 12/28/16 07:00 Attending/Attestation - Attestation I have personally seen and examined this patient.: Yes I have fully participated in the care of the patient.: Yes I have reviewed all pertinent clinical information, including history, physical exam and plan: Yes Notes (Text): 12/28/16 15:53 attending note; Patient seen and examined with resident. Patient is a 26 year old femalewith 13 weeks of who presents to the ED with left lower abdominal pain and cramping. UA in the ED shows positive leukocyte esterase and CBC shows elevated WBC. urine culture is pending. ID evaluation appreciated. Continue IV Rocephin. Patient is afebrile and nontoxic. anemia; stable. Continue vitamin. Patient needs close follow-up with [facility] [employer] upon discharge. 12/28/16 16:01
[2016-12-28 16:22] VITALS: O2SAT 98
--- NOTE | 2016-12-28 18:41 | CP.PCM.PN ---
Subjective - Date & Time of Evaluation Date of Evaluation: 12/28/16 Time of Evaluation: 10:45 - Subjective Subjective: Comfortable, left lower abdominal pain is much better, no fevers overnight. Objective - Vital Signs/Intake and Output Vital Signs (last 24 hours): Temp Pulse Resp BP Pulse Ox 98.2 F 80 18 93/48 L 99 12/28/16 06:00 12/28/16 06:00 12/28/16 06:00 12/28/16 06:00 12/28/16 06:00 Intake and Output: 12/28/16 12/28/16 06:59 18:59 Intake Total 620 Balance 620 - Medications Medications: Current Medications Acetaminophen (Tylenol 325mg Tab) 650 mg PO Q6H PRN PRN Reason: Fever >100.4 F Amoxicillin (Amoxil 500 Mg Cap) 500 mg PO Q8 [facility]ARA PRN Reason: Protocol Famotidine (Pepcid) 40 mg PO HS [facility] Last Admin: 12/27/16 22:15 Dose: 40 mg Folic Acid (Folic Acid) 1 mg PO DAILY [facility] Last Admin: 12/27/16 09:50 Dose: 1 mg Ceftriaxone Sodium (Rocephin 1 Gram Ivpb) 1 gm in 100 mls @ 100 mls/hr IVPB DAILY [facility] PRN Reason: Protocol Last Admin: 12/27/16 10:41 Dose: 100 mls/hr Multivitamins (Thera Tab) 1 tab PO 0800 [facility] Last Admin: 12/27/16 09:52 Dose: 1 tab - Labs Labs: 12/28/16 07:00 12/28/16 07:00 - Constitutional Appears: Non-toxic, No Acute Distress - Head Exam Head Exam: NORMAL INSPECTION - ENT Exam ENT Exam: Mucous Membranes Moist - Neck Exam Neck Exam: absent: Meningismus - Respiratory Exam Respiratory Exam: Decreased Breath Sounds - Cardiovascular Exam Cardiovascular Exam: +S1, +S2 - GI/Abdominal Exam GI & Abdominal Exam: Soft. absent: Tenderness Assessment and Plan - Assessment and Plan (Free Text) Plan: Assessment Systemic Inflammatory Response Syndrome, consider due to gram positive cocci UTI UTI in the past current with AOG 12 weeks Plan continue Rocephin and we have added augmentin pending identification and sensitivities of the gram positive cocci in the urine; reviewed Ultrasound which showed left ovarian cyst will continue to monitor clinically
--- NOTE | 2016-12-28 20:14 | US ---
EXAM: US After First Trimester, Transabdominal EXAM DATE/TIME: 12/28/2016 6:04 PM CLINICAL HISTORY: 26 years old, female; Screening exam; Routine us, uterus; Additional info: 13 weeks TECHNIQUE: Real-time transabdominal obstetrical ultrasound of the maternal pelvis and a second or third trimester with image documentation. COMPARISON: Report from a recent obstetric ultrasound of 12/27/2016. FINDINGS: Uterus measures 14.1 x 8.3 x 9.2 cm. No myometrial masses identified. Single fetus identified, variable position. Calculated sonographic gestational age is 14 weeks, 1 day. Estimated delivery date is 06/27/27. heart motion visualized, at 153 beats/min. Limited assessment of the anatomy on this exam due to early gestational age. No obvious anomalies are detected. Anterior location of the placenta. No evidence of placental abruption. No evidence of placenta previa. Cervical length is 3.6 cm (normal greater than 3 cm), measured transabdominally. Left ovary is seen, and is enlarged in size, measuring 7 x 7 x 4.8 cm. It contains a dominant cystic lesion, measuring 5.3 x 4.4 x 4.9 cm maximally. This lesion appears mildly complex, demonstrating diffuse, low level homogeneous-appearing internal echoes. It has mildly lobulated margins. No evidence of internal nodular or hypervascular components. Flow seen in the left ovary on color and Doppler imaging, with no evidence of torsion. Right ovary could not be visualized. IMPRESSION: 14 week, 1 day intrauterine with heart motion. No acute abnormality identified. 5.3 cm mildly complex cystic lesion in the left ovary. This could represent an endometrioma, given its ultrasound appearance. Recommend ultrasound follow-up in 6-12 weeks. See above for remaining findings.
[2016-12-29 08:39] VITALS: BP 93/52; PULSE 71; RESP 18; TEMP 98.5
[2016-12-29] MEDS: Multivitamin Therapeutic Tab PO SCH (09:17)
--- NOTE | 2016-12-29 12:56 | CP.PCM.DIS ---
<JtAmrita - Last Filed: 12/29/16 12:59> Provider - Provider Date of Admission: 12/27/16 03:49 Attending physician: Kalia Rose MD Primary care physician: NO PRIMARY CARE PROVIDER Consults: Dr. Alvarez SPEECH COMM[employer]ICATION PROFESSOR Dr. Jeffers - ID Time Spent in preparation of Discharge (in minutes): 20 Hospital Course - Lab Results Lab Results: Most Recent Lab Values WBC 8.0 10^3/ul (4.5-11.0) D 12/28/16 07:00 RBC 2.77 10^6/uL (3.5-6.1) L 12/28/16 07:00 Hgb 7.9 g/dL (12.0-16.0) L 12/28/16 07:00 Hct 23.2 % (36.0-48.0) L 12/28/16 07:00 MCV 83.8 fl (80.0-105.0) 12/28/16 07:00 MCH 28.5 pg (25.0-35.0) 12/28/16 07:00 MCHC 34.1 g/dl (31.0-37.0) 12/28/16 07:00 RDW 12.3 % (11.5-14.5) 12/28/16 07:00 Plt Count 173 10^3/uL (120.0-450.0) 12/28/16 07:00 MPV 9.2 fl (7.0-11.0) 12/28/16 07:00 Gran % 72.0 % (50.0-68.0) H 12/28/16 07:00 Lymph % (Auto) 19.0 % (22.0-35.0) L 12/28/16 07:00 Caroline % (Auto) 7.0 % (1.0-6.0) H 12/28/16 07:00 Eos % (Auto) 1.9 % (1.5-5.0) 12/28/16 07:00 Baso % (Auto) 0.1 % (0.0-3.0) 12/28/16 07:00 Gran # 5.74 (1.4-6.5) 12/28/16 07:00 Lymph # 1.5 (1.2-3.4) 12/28/16 07:00 Caroline # 0.6 (0.1-0.6) 12/28/16 07:00 Eos # 0.2 (0.0-0.7) 12/28/16 07:00 Baso # 0.01 K/mm3 (0.0-2.0) 12/28/16 07:00 Sodium 136 mmol/L (132-148) 12/28/16 07:00 Potassium 3.6 mmol/L (3.6-5.0) 12/28/16 07:00 Chloride 106 mmol/L (95-110) 12/28/16 07:00 Carbon Dioxide 23 mmol/L (21-33) 12/28/16 07:00 Anion Gap 11 (10-20) 12/28/16 07:00 BUN 5 mg/dL (7-21) L 12/28/16 07:00 Creatinine 0.5 mg/dL (0.5-1.4) 12/28/16 07:00 Est GFR ( Amer) > 60 12/28/16 07:00 Est GFR (Non-Af Amer) > 60 12/28/16 07:00 Random Glucose 81 mg/dL (70-110) 12/28/16 07:00 Calcium 8.0 mg/dL (8.4-10.5) L 12/28/16 07:00 Total Bilirubin 0.2 mg/dL (0.2-1.3) 12/28/16 07:00 AST 19 U/L (15-39) 12/28/16 07:00 ALT 23 U/L (7-56) 12/28/16 07:00 Alkaline Phosphatase 55 U/L (38-133) 12/28/16 07:00 Total Protein 5.9 g/dL (5.8-8.3) 12/28/16 07:00 Albumin 3.1 g/dL (3.0-4.8) 12/28/16 07:00 Globulin 2.8 gm/dL 12/28/16 07:00 Albumin/Globulin Ratio 1.1 (1.1-1.8) 12/28/16 07:00 Lipase 39 U/L (23-300) 12/27/16 00:41 Beta HCG, Quant 041202.00 mIU/mL (0-6.15) H 12/27/16 00:41 Urine Color Yellow (YELLOW) 12/27/16 00:33 Urine Appearance Sl cloudy (CLEAR) 12/27/16 00:33 Urine pH 6.0 (4.7-8.0) 12/27/16 00:33 Ur Specific Benham 1.020 (1.005-1.035) 12/27/16 00:33 Urine Protein 30 mg/dL (<30 mg/dL) H 12/27/16 00:33 Urine Glucose (UA) Negative mg/dL (NEGATIVE) 12/27/16 00: Urine Ketones Negative mg/dL (NEGATIVE) 12/27/16 00:33 Urine Blood Moderate (NEGATIVE) H 12/27/16 00:33 Urine Nitrate Negative (NEGATIVE) 12/27/16 00:33 Urine Bilirubin Negative (NEGATIVE) 12/27/16 00:33 Urine Urobilinogen 1.0 E.U./dL (<1 E.U./dL) H 12/27/16 00:33 Ur Leukocyte Esterase Moderate Edmundo/uL (NEGATIVE) H 12/27/16 00:33 Urine RBC 2 - 5 /hpf (0-2) 12/27/16 00:33 Urine WBC 20 - 25 /hpf (0-6) 12/27/16 00:33 Ur Epithelial Cells 3 - 4 /hpf (0-5) 12/27/16 00:33 Urine Bacteria Trace (NEG) 12/27/16 00:33 Urine HCG, Qual Positive (NEGATIVE) 12/27/16 00:33 Blood Type O POSITIVE 12/27/16 00:41 Antibody Screen Negative 12/27/16 00:41 BBK History Checked Patient has bt 12/27/16 00:41 - Hospital Course Hospital Course: Discharge summary for Dr. Rose Patient is a 26 year old female currently in first trimester (A2) with PMH significant for history of bladder infection who presents with abdominal cramping and left sided constant, non-radiating abdominal pain for the past 12 hours. Patient receives care from [facility], there she reports a normal first trimester US. She denies fever, chills, chest pain, shortness of breath, nausea, vomiting or difficulty with urination. Ultrasound showed left ovarian cyst. US done yesterday night 12/24 to check on status of child. No other acute events overnight. PT S&E at bedside today. 12/29. Patient denies any complains. Instructions were given for antibiotic therapy. Urine Cx tested positive for gram positive cocci: Patient tested positive for gram positive cocci. Plan is to continue rocephin treatment and augmentin prescription written for patient to go home. - Date & Time of H&P Date of H&P: 12/29/16 Time of H&P: 12:55 Discharge Exam - Head Exam Head Exam: NORMAL INSPECTION - Eye Exam Eye Exam: EOMI, Normal appearance - ENT Exam ENT Exam: Mucous Membranes Moist - Neck Exam Neck exam: Full Rom - Respiratory Exam Respiratory Exam: Clear to PA & Lateral, NORMAL BREATHING PATTERN. absent: Accessory Muscle Use, Respiratory Distress - Cardiovascular Exam Cardiovascular Exam: REGULAR RHYTHM. absent: Bradycardia, Tachycardia - GI/Abdominal Exam GI & Abdominal Exam: Soft. absent: Tenderness - Extremities Exam Extremities exam: full ROM - Back Exam Back exam: FULL ROM, NORMAL INSPECTION - Neurological Exam Neurological exam: Alert, Normal Gait, Oriented x3 - Psychiatric Exam Psychiatric exam: Normal Affect, Normal Mood - Skin Skin Exam: Dry, Intact, Normal Color Discharge Plan - Discharge Medications Prescriptions: Amoxicillin [Amoxil 500 mg Cap] 500 mg PO Q8 #18 cap - Follow Up Plan Condition: STABLE Disposition: HOME/ ROUTINE Instructions: Urinary Tract Infection in Women (DC), Urinary Tract Infection in Men (DC), Dysuria (GEN) Additional Instructions: 1. follow up with [facility] in 1 week 2. continue with home medications. 3. continue amoxicillin 500mg POQ8H for 6 days. 4. return to ED if worsening symptoms (ie: blood in urine, extreme abdominal pain/back pain, difficulties urinating, dizziness, fainting) Referrals: PCP,NO [Primary Care Provider] - <Kalia Rose - Last Filed: 12/29/16 14:05> Provider - Provider Date of Admission: 12/27/16 03:49 Attending physician: Kalia Rose MD Primary care physician: NO PRIMARY CARE PROVIDER Hospital Course - Lab Results Lab Results: Most Recent Lab Values WBC 8.0 10^3/ul (4.5-11.0) D 12/28/16 07:00 RBC 2.77 10^6/uL (3.5-6.1) L 12/28/16 07:00 Hgb 7.9 g/dL (12.0-16.0) L 12/28/16 07:00 Hct 23.2 % (36.0-48.0) L 12/28/16 07:00 MCV 83.8 fl (80.0-105.0) 12/28/16 07:00 MCH 28.5 pg (25.0-35.0) 12/28/16 07:00 MCHC 34.1 g/dl (31.0-37.0) 12/28/16 07:00 RDW 12.3 % (11.5-14.5) 12/28/16 07:00 Plt Count 173 10^3/uL (120.0-450.0) 12/28/16 07:00 MPV 9.2 fl (7.0-11.0) 12/28/16 07:00 Gran % 72.0 % (50.0-68.0) H 12/28/16 07:00 Lymph % (Auto) 19.0 % (22.0-35.0) L 12/28/16 07:00 Caroline % (Auto) 7.0 % (1.0-6.0) H 12/28/16 07:00 Eos % (Auto) 1.9 % (1.5-5.0) 12/28/16 07:00 Baso % (Auto) 0.1 % (0.0-3.0) 12/28/16 07:00 Gran # 5.74 (1.4-6.5) 12/28/16 07:00 Lymph # 1.5 (1.2-3.4) 12/28/16 07:00 Caroline # 0.6 (0.1-0.6) 12/28/16 07:00 Eos # 0.2 (0.0-0.7) 12/28/16 07:00 Baso # 0.01 K/mm3 (0.0-2.0) 12/28/16 07:00 Sodium 136 mmol/L (132-148) 12/28/16 07:00 Potassium 3.6 mmol/L (3.6-5.0) 12/28/16 07:00 Chloride 106 mmol/L (95-110) 12/28/16 07:00 Carbon Dioxide 23 mmol/L (21-33) 12/28/16 07:00 Anion Gap 11 (10-20) 12/28/16 07:00 BUN 5 mg/dL (7-21) L 12/28/16 07:00 Creatinine 0.5 mg/dL (0.5-1.4) 12/28/16 07:00 Est GFR ( Amer) > 60 12/28/16 07:00 Est GFR (Non-Af Amer) > 60 12/28/16 07:00 Random Glucose 81 mg/dL (70-110) 12/28/16 07:00 Calcium 8.0 mg/dL (8.4-10.5) L 12/28/16 07:00 Total Bilirubin 0.2 mg/dL (0.2-1.3) 12/28/16 07:00 AST 19 U/L (15-39) 12/28/16 07:00 ALT 23 U/L (7-56) 12/28/16 07:00 Alkaline Phosphatase 55 U/L (38-133) 12/28/16 07:00 Total Protein 5.9 g/dL (5.8-8.3) 12/28/16 07:00 Albumin 3.1 g/dL (3.0-4.8) 12/28/16 07:00 Globulin 2.8 gm/dL 12/28/16 07:00 Albumin/Globulin Ratio 1.1 (1.1-1.8) 12/28/16 07:00 Lipase 39 U/L (23-300) 12/27/16 00:41 Beta HCG, Quant 563336.00 mIU/mL (0-6.15) H 12/27/16 00:41 Urine Color Yellow (YELLOW) 12/27/16 00:33 Urine Appearance Sl cloudy (CLEAR) 12/27/16 00:33 Urine pH 6.0 (4.7-8.0) 12/27/16 00:33 Ur Specific [place] 1.020 (1.005-1.035) 12/27/16 00:33 Urine Protein 30 mg/dL (<30 mg/dL) H 12/27/16 00:33 Urine Glucose (UA) Negative mg/dL (NEGATIVE) 12/27/16 00:33 Urine Ketones Negative mg/dL (NEGATIVE) 12/27/16 00:33 Urine Blood Moderate (NEGATIVE) H 12/27/16 00:33 Urine Nitrate Negative (NEGATIVE) 12/27/16 00:33 Urine Bilirubin Negative (NEGATIVE) 12/27/16 00:33 Urine Urobilinogen 1.0 E.U./dL (<1 E.U./dL) H 12/27/16 00:33 Ur Leukocyte Esterase Moderate Edmundo/uL (NEGATIVE) H 12/27/16 00:33 Urine RBC 2 - 5 /hpf (0-2) 12/27/16 00:33 Urine WBC 20 - 25 /hpf (0-6) 12/27/16 00:33 Ur Epithelial Cells 3 - 4 /hpf (0-5) 12/27/16 00:33 Urine Bacteria Trace (NEG) 12/27/16 00:33 Urine HCG, Qual Positive (NEGATIVE) 12/27/16 00:33 Blood Type O POSITIVE 12/27/16 00:41 Antibody Screen Negative 12/27/16 00:41 BBK History Checked Patient has bt 12/27/16 00:41 Attending/Attestation - Attestation I have personally seen and examined this patient.: Yes I have fully participated in the care of the patient.: Yes I have reviewed all pertinent clinical information, including history, physical exam and plan: Yes Notes (Text): 12/29/16 13:59 attending note; Patient seen and examined with resident. Patient is a 26 year old femalewith 13 weeks of who presents to the ED with left lower abdominal pain and cramping. UA in the ED shows positive leukocyte esterase and CBC shows elevated WBC. urine culture is positive for beta strep infection. ID evaluation appreciated. Treated with IV Rocephin. Patient is afebrile and nontoxic. anemia; stable. Continue vitamin. discharge home with po amoxicillin. Patient needs close follow-up with [employer] upon discharge. diagnosis; UTI Anemia
== END 2016-12-29 11:28 | disposition home or self-care (01) ==
LOC: ED 22:21 → ERH 12-27 03:49 → 3RSO 12-27 05:13
PROVIDERS: ADMIT Internal Medicine; ATTEND Internal Medicine
DX: O23.01 Infections of kidney in pregnancy, first trimester (principal); N10 Acute pyelonephritis; B95.1 Streptococcus, group B, as the cause of diseases classified elsewhere; O99.011 Anemia complicating pregnancy, first trimester; O34.81 Maternal care for other abnormalities of pelvic organs, first trimester; N83.202 Unspecified ovarian cyst, left side; Z3A.13 13 weeks gestation of pregnancy
CPT/HCPCS: 36415; 76815; 80053; 81001; 83690; 84702; 84703; 85025; 85027; 86850; 86900; 87040; 87086; 87181; 99284; G0378; J0696